=== PATIENT | male | born 1985 | race Asian ===

== ENCOUNTER 2025-01-22 17:58 | Emergency (ER) | payer OTHER, SELFPAY ==
[2025-01-22 19:18] VITALS: BP 131/83; PULSE 95; RESP 19; TEMP 37.2; O2SAT 96
--- NOTE | 2025-01-22 19:28 | PD.EDADULT ---
ED General RME/HPI General Chief complaint: General Adult/Misc Complain Stated complaint: NEEDS PRESCRIPTION FOR DOXYCYCLINE Time Seen by Provider: 01/22/25 17:59 Arrival date/time: 01/22/25 17:58 39 year old male present to emergency room with medication refill for doxycycline. pt report recent test positive for [facility]lam[facility]. pt was divide up the antibiotic when he accidentally drop his prescription into the garage dispenser. SEVERITY: Symptoms are described as being severe with limitations on activities of daily living CONTEXT: The patient is unable to identify any inciting events. DURATION/TIMING: The symptoms started approximately 1 day ASSOCIATED SYMPTOMS: The patient is unable to identify any other associated symptoms. MODIFYING FACTORS: The patient is unable to identify any alleviating or aggravating symptoms. PERTINENT ROS: no fevers, no chest pain/shortness of breath no nausea,vomiting, diarrhea, no dizziness/headache no rash no loc/syncope episode no abd/back pain REVIEW OF SYSTEMS: See History of Present Illness - with the exception of those mentioned in the history of present illness, all other systems reviewed and reported as negative GENERAL: In general the patient is awake, interactive, in an emergency department gurney. HEAD/EYES/EARS/NOSE/THROAT: normo-cephalic, atraumatic, mucus membranes are moist, anicteric, palpebral conjunctiva is pink, trachea is midline. ABDOMEN: soft, not tender, no masses appreciated BACK: normal range of motion without pain. NEUROLOGICAL: cranio-facial features are symmetric, moves all four extremities equally without obvious limitations or weakness. EXTREMITY: no tenderness to palpation over the long bones or large joints of the bilateral upper and lower extremities, no joint swelling, no joint erythema, no signs of trauma, no unilateral leg swelling and no peripheral edema. SKIN: warm, dry, well-perfused, no jaundice, no rash, no telangiectasias or petechia. PSYCH: calm, cooperative, no evidence of psychosis or agitation Related Data Previous Rx's ?Medication ?Instructions ?Recorded doxycycline hyclate 100 mg capsule 100 mg PO BID sti 7 days #14 caps 01/22/25 Allergies Allergy/AdvReac Type Severity Reaction Status Date / Time No Known Allergies Allergy Verified 01/22/25 18:00 Course Course Course Narrative: review prescription written by health department. rx: doxycline 100mg bid for 7 days first dose given prior to discharge Quality Measures none Orders Category Date Time Status Doxycycline [Vibramycin] Med 01/22/25 19:26 Discontinued 100 mg PO X1 ONE Vital Signs Vital signs: Vital Signs Temperature 98.9 F 01/22/25 19:18 Pulse Rate 95 01/22/25 19:18 Respiratory Rate 19 01/22/25 19:18 Blood Pressure 131/83 H 01/22/25 19:18 Pulse Oximetry (%) 96 01/22/25 19:18 Oxygen Delivery Method Room Air 01/22/25 19:18 MDM Patient data External records reviewed:: None Clinical information provided by:: patient Social determinants that could affect healthcare access:: none Patient has the following chronic illnesses:: n/a How is presenting disease/condition affected by chronic disease/condition?: no chronic disease Evaluation data The following diagnostics were reviewed and interpreted by me:: other (specify) (n/a ) Lab and/or radiology exams considered but not ordered:: n/a Interpretation Summary: n/a Medications Medications considered but not ordered:: n/a Medication administrations:: Medication Administration History Discontinued Medications Doxycycline Hyclate (Doxycycline 100 Mg Tablet) 100 mg PO X1 ONE Stop: 01/22/25 19:27 as stated above Consultations Consultation(s) initiated? (list below): No Diagnosis Differential Diagnosis ED Complaint MDM: medication refill Most likely diagnosis given after review of the tests above:: medication refill, sti Admission Indicated Admission indicated?: not indicated Explain why admission is indicated or not indicated:: n/a Admission Request Was there a request for admission?: No Disposition Plan Disposition Plan: Discharge Discharge Attestation Discharge Attestation: The patient and all family members were given an opportunity to ask questions and understood the discharge instructions. Discharge instructions specifically effects, indications for sooner follow up or return to the emergency department, and the expected course of current diagnosis. Patient condition: Stable Medical Decision Making Differential Diagnosis Differential Diagnosis: medication refill Discharge Plan Plan Patient Disposition: HOME (Self Care) Prescriptions/Referrals Prescriptions/Med Rec: New doxycycline hyclate 100 mg capsule 100 mg PO BID 7 Days Qty: 14 0RF Referrals: No Primary/Family,Physician [Primary Care Provider] - In 1 week Problem List Clinical Impression: STI (sexually transmitted infection) Patient/Caregiver Discharge Instructions Education Materials: Understanding STIs Print Language: Turkish Stand Alone Forms: Marva Award Info., Patient Portal Info Letter
[2025-01-22] MEDS: DOXYCYCLINE 100 MG TABLET PO (19:55)
== END 2025-01-22 19:58 | disposition home or self-care (01) ==
PROVIDERS: Emergency Provider Emergency Medicine
DX: Z76.0 Encounter for issue of repeat prescription (principal); A74.9 Chlamydial infection, unspecified
CPT/HCPCS: 99282; A9270

== ENCOUNTER 2025-05-08 08:54 | Emergency (ER) | payer OTHER, SELFPAY ==
[2025-05-08 08:54] VITALS: BMI 28.4
[2025-05-08 09:22] VITALS: BP 122/86; PULSE 84; RESP 16; TEMP 37.1; O2SAT 96
--- NOTE | 2025-05-08 09:27 | PD.EDMALE ---
ED Male Genitalurinary RME/HPI General Chief complaint: Urogenital-Male Stated complaint: NEED SOME ANTIBIOTICS FOR STI Time Seen by Provider: 05/08/25 09:13 Arrival date/time: 05/08/25 08:54 Related Data Allergies Allergy/AdvReac Type Severity Reaction Status Date / Time No Known Allergies Allergy Verified 05/08/25 08:57 Course Orders Category Date Time Status Chlamydia/GC/TV - PCR Stat Lab 05/08/25 Ordered HIV Rapid (Source Pt) Stat Lab 05/08/25 09:21 Ordered Syphilis Stat Lab 05/08/25 Ordered UA, C/S IF [Urinalysis, C/S if Indicated] Stat Lab 05/08/25 09:20 Ordered Vital Signs Vital signs: Vital Signs Temperature 98.8 F 05/08/25 09:22 Pulse Rate 84 05/08/25 09:22 Respiratory Rate 16 05/08/25 09:22 Blood Pressure 122/86 H 05/08/25 09:22 Pulse Oximetry (%) 96 05/08/25 09:22 Oxygen Delivery Method Room Air 05/08/25 09:22 Urogenital - Male MDM Narrative MDM Narrative:: Patient is a 40-year-old male seen emerged part concerns for burning with urination, and penile discharge. Patient has a history of polysubstance use, recurrent STIs. Concern for recurrence of STI, urinary tract infection. Patient abdomen soft nondistended, denies any flank pain. Less likely pyelonephritis, acute intra-abdominal pathology. Patient nonseptic nontoxic-appearing at this time. Ordered STI testing as well as urinalysis. Offered medication for symptom relief. Discharge Plan Patient/Caregiver Discharge Instructions Print Language: [place] Island[place]
--- NOTE | 2025-05-08 09:39 | PD.EDMALE ---
ED Male Genitalurinary RME/HPI General Chief complaint: Urogenital-Male Stated complaint: NEED SOME ANTIBIOTICS FOR STI Time Seen by Provider: 05/08/25 09:13 Arrival date/time: 05/08/25 08:54 Limitations: no limitations RME / HPI RME / HPI Narrative: DR. YUE MURPHY ED EVALUATION: 40-year-old male with past medical history of polysubstance use and recurrent sexually transmitted infections presents to the Emergency Department with complaint of white penile discharge that began today, following three days of penile discomfort. Patient reports being sexually active with both male and female partners. He denies fever, chills, nausea, vomiting, rash, or other associated symptoms. No known drug allergies reported. Related Data Previous Rx's ?Medication ?Instructions ?Recorded doxycycline monohydrate 100 mg 100 mg PO BID #14 caps 05/08/25 capsule Allergies Allergy/AdvReac Type Severity Reaction Status Date / Time No Known Allergies Allergy Verified 05/08/25 08:57 Review of Systems Review of Systems Systems Reviewed: All systems reviewed, normal except as documented Past Medical History Social History SMOKING STATUS: Never smoker SUBSTANCE USE: unknown (history of polysubstance use) ED Exam General Limitations: Present no limitations General appearance: Present alert and in no apparent distress Head Head exam: Present atraumatic, normocephalic and normal inspection Eye Eye exam: Present normal appearance, PERRL and EOMI ENT ENT exam: Present normal exam, normal oropharynx and mucous membranes moist Neck Neck exam: Present normal inspection, full ROM and trachea midline Chest Chest inspection: Present normal inspection and symmetric chest wall rise Respiratory Respiratory exam: Present normal lung sounds bilaterally Cardiovascular Cardiovascular exam: Present regular rate, normal rhythm and normal heart sounds Abdominal Exam Abdominal exam: Present soft and normal bowel sounds Extremities Exam Extremities exam: Present normal inspection and full ROM Back Exam Back exam: Present normal inspection and full ROM Neurological Exam Neurological exam: Present alert, oriented X3 and CN II-XII intact Psychiatric Psychiatric exam: Present normal affect and normal mood Skin Skin exam: Present warm, dry, intact and normal color; Absent rash Course Quality Measures none Orders Category Date Time Status Chlamydia/GC/TV - PCR Stat Lab 05/08/25 09:39 Completed MHATP/TP-PA* Stat Lab 05/08/25 09:55 Received Syphilis Stat Lab 05/08/25 09:55 Completed UA, C/S IF [Urinalysis, C/S if Indicated] Stat Lab 05/08/25 09:39 Completed Urine Culture Stat Lab 05/08/25 09:39 Received Doxycycline [Vibramycin] Med 05/08/25 10:19 Discontinued 100 mg PO X1 ONE cefTRIAXone [Rocephin] 500 mg Med 05/08/25 10:21 Discontinued Lidocaine 1% 20 ml [Xylocaine 1% 20 ML] 1 ml IM X1 Vital Signs Vital signs: Vital Signs Temperature 98.8 F 05/08/25 09:22 Pulse Rate 84 05/08/25 09:22 Respiratory Rate 16 05/08/25 09:22 Blood Pressure 122/86 H 05/08/25 09:22 Pulse Oximetry (%) 96 05/08/25 09:22 Oxygen Delivery Method Room Air 05/08/25 09:22 Urogenital - Male MDM Narrative MDM Narrative:: IKaylin am scribing for and in the presence of Dr. Cote. Patient is a 40-year-old male seen emerged part concerns for burning with urination, and penile discharge. Patient has a history of polysubstance use, recurrent STIs. Concern for recurrence of STI, urinary tract infection. Patient abdomen soft nondistended, denies any flank pain. Less likely pyelonephritis, acute intra-abdominal pathology. Patient nonseptic nontoxic-appearing at this time. Ordered STI testing as well as urinalysis. Offered medication for symptom relief. Patient data External records reviewed:: [facility] [place] previous records Clinical information provided by:: patient Social determinants that could affect healthcare access:: substance use Patient has the following chronic illnesses:: Polysubstance use and recurrent sexually transmitted infections. No known drug allergies reported. How is presenting disease/condition affected by chronic disease/condition?: exacerbated by Evaluation data The following diagnostics were reviewed and interpreted by me:: lab results Lab and/or radiology exams considered but not ordered:: none Interpretation Summary: See narrative above. Medications / Prescriptions Medications or Prescriptions considered but not ordered:: none Medication administrations:: Medication Administration History Discontinued Medications Ceftriaxone Sodium 500 mg/ (Lidocaine HCl 1 ml) 0 mg IM X1 ONE Stop: 05/08/25 10:22 Last Admin: 05/08/25 10:28 Dose: 500 mg Documented By: Doxycycline Hyclate (Doxycycline 100 Mg Tablet) 100 mg PO X1 ONE Stop: 05/08/25 10:20 Last Admin: 05/08/25 10:28 Dose: 100 mg Documented By: see above if any Consultations Consultation(s) initiated? (list below): No Diagnosis Urogenital Male Differential Diagnosis: other (gonorrhea, chlamydia urethritis, and non-gonococcal/non-chlamydial urethritis) Most likely diagnosis given after review of the tests above:: STD Admission Indicated Admission indicated?: not indicated Admission Request Was there a request for admission?: No Disposition Plan Disposition Plan: Discharge Discharge Attestation Discharge Attestation: The patient and all family members were given an opportunity to ask questions and understood the discharge instructions. Discharge instructions specifically effects, indications for sooner follow up or return to the emergency department, and the expected course of current diagnosis. Patient condition: Stable Discharge Plan Plan Patient Disposition: HOME (Self Care) Prescriptions/Referrals Prescriptions/Med Rec: New doxycycline monohydrate 100 mg capsule 100 mg PO BID Qty: 14 0RF Problem List Clinical Impression: Sexually transmissible disease Patient/Caregiver Discharge Instructions Education Materials: Understanding STIs Additional Instructions: I highly recommend that you use condoms for sexually transmitted infection prevention. Print Language: Greenlandic Stand Alone Forms: Marva Award Info., Patient Portal Info Letter
[2025-05-08 10:03] LABS: Collection Type, Urine Clean Catch; Squamous Epithelial Cell,Urine 0 /hpf (0-5)
[2025-05-08 10:07] LABS: Bilirubin,Urine Negative (Negative); Blood,Urine Negative (Negative); Clarity,Urine Clear (Clear/Hazy); Color,Urine Yellow (Lt Yel-Yel); Glucose, Urine Negative (Negative); Ketones,Urine Negative (Negative); Leukocyte Esterase,Urine Positive (Negative); Nitrite,Urine Negative (Negative); PH,Urine 6.0 (5.0-7.0); Protein,Urine Negative (Neg - Trace); RBC,Urine 2 /hpf (0-3); Specific Gravity,Urine 1.026 (1.001-1.035); Urobilinogen,Urine Negative mg/dL (0.0-1.0); WBC,Urine 12 /hpf (0-5)
[2025-05-08 10:12] LABS: Culture Indicated,Urine Yes
[2025-05-08] MEDS: DOXYCYCLINE 100 MG TABLET PO (10:28)
[2025-05-08] MEDS: cefTRIAXone 500 MG, LIDOCAINE 1% 20 ML 1 ML IM (10:28)
[2025-05-08 10:54] LABS: HIV Rapid (Source Pt) Non-Reactive; MHATP/TP-PA* See Sep Rpt; Syphilis Reactive (Nonreactive)
[2025-05-08 12:22] LABS: Chlamydia trachomatis PCR Negative (Not Detect); Neisseria Gonorrhoeae DNA PCR Negative (Not Detect); Trichomonas Negative (Negative)
== END 2025-05-08 11:44 | disposition home or self-care (01) ==
LOC: SERX 10:50
PROVIDERS: Emergency Provider Emergency Medicine
DX: A64 Unspecified sexually transmitted disease (principal)
CPT/HCPCS: 36415; 81001; 86780; 87086; 87491; 87591; 87661; 96372; 99283; J0696; J3490; A9270

== ENCOUNTER 2025-09-09 03:50 | Emergency (ER) | payer OTHER, SELFPAY ==
[2025-09-09 03:52] VITALS: BMI 29.7
[2025-09-09 04:47] VITALS: BP 138/94; PULSE 91; RESP 19; TEMP 36.6; O2SAT 96
--- NOTE | 2025-09-09 05:19 | EDRME_ITS ---
Rapid Medical Screening Exam [facility] Arrival date/time: 09/09/25 03:50 40M with history of sleep apnea presents to ED with several days of sore throat and 1 day of SOB and tingling/numbness that woke him up from sleep. Patient denies known psych disorder and denies drug/alcohol use. Chief Complaint: Shortness of Breath/Dyspnea Vital signs: Vital Signs Temperature 98 F 09/09/25 04:47 Pulse Rate 91 09/09/25 04:47 Respiratory Rate 19 09/09/25 04:47 Blood Pressure 138/94 H 09/09/25 04:47 Pulse Oximetry (%) 96 09/09/25 04:47 Oxygen Delivery Method Room Air 09/09/25 04:47 Exam: Clear lungs. Anxious Clinical Impression: Anxiety/panic attack vs CAP vs URI vs PE
--- NOTE | 2025-09-09 05:20 | XR_ITS ---
EXAMINATION: PA chest single view TECHNIQUE: Upright PA chest single view Date and time: September 01, 2025, 0613 hours INDICATIONS: Coughing shortness of breath 3 days FINDINGS: Normal heart size Mild exaggeration of bronchovascular markings. No lobar pneumonia or pulmonary edema IMPRESSION: Mild bronchitis pattern
[2025-09-09] MEDS: DIAZEPAM 5 MG TABLET PO (05:43)
--- NOTE | 2025-09-09 07:47 | EDNOTE_ITS ---
ED SOB =RME/HPI General Chief Complaint: Shortness of Breath/Dyspnea Stated Complaint: SOB Time Seen by Provider: 09/09/25 06:11 Source: patient Arrival date/time: 09/09/25 03:50 40-year-old male with no known medical history presents to the emergency room with a chief complaint of shortness of breath x 1 day Mode of arrival: ambulatory Limitations: no limitations RME / HPI RME / HPI Narrative: 09/09/25 03:50 40M with history of sleep apnea presents to ED with several days of sore throat and 1 day of SOB and tingling/numbness that woke him up from sleep. Patient denies known psych disorder and denies drug/alcohol use. Exam: Clear lungs. Anxious Impression: Anxiety/panic attack vs CAP vs URI vs PE Related Data Previous Rx's ?Medication ?Instructions ?Recorded doxycycline monohydrate 100 mg 100 mg PO BID #14 caps 05/08/25 capsule albuterol sulfate 90 mcg/actuation 2 puff inhalation Q 6H PRN 09/09/25 aerosol inhaler (Ventolin HFA) shortness of breath or wheezing #6.7 grams Allergies Allergy/AdvReac Type Severity Reaction Status Date / Time No Known Allergies Allergy Verified 09/09/25 03:55 Review of Systems Review of Systems Systems Reviewed: All systems reviewed, normal except as documented Constitutional Constitutional: Reports system reviewed and no additional complaints, except as documented, Denies fatigue, Denies fever(s), Denies headache(s) and Denies weakness Eyes Eyes: Reports system reviewed and no additional complaints, except as documented, Denies blurry vision and Denies change in vision ENT Ears, Nose, Mouth, and Throat: Reports system reviewed and no additional complaints, except as documented, Denies otalgia, Denies headache(s), Denies nasal congestion, Denies throat swelling and Denies vertigo Cardiovascular Cardiovascular: Reports system reviewed and no additional complaints, except as documented, Denies chest pain, Reports dyspnea and Denies dyspnea on exertion Respiratory Respiratory: Reports system reviewed and no additional complaints, except as documented, Denies chest congestion, Reports cough, Reports dyspnea, Denies dyspnea on exertion and Denies wheezing Gastrointestinal Gastrointestinal: Reports system reviewed and no additional complaints, except as documented, Denies abdominal pain, Denies cramping, Denies nausea and Denies vomiting Genitourinary Genitourinary: Reports system reviewed and no additional complaints, except as documented, Denies dysuria and Denies hematuria Musculoskeletal Musculoskeletal: Reports system reviewed and no additional complaints, except as documented and Denies back pain Integumentary/Breasts Skin/Breast: Reports system reviewed and no additional complaints, except as documented and Denies wounds Neurologic Neurologic: Reports system reviewed and no additional complaints, except as documented, Denies confusion, Denies headache(s), Denies lack of coordination, Denies vertigo and Denies weakness Psychiatric Psychiatric: Reports system reviewed and no additional complaints, except as documented, Denies anxiety, Denies confusion, Denies depression, Denies paranoia, Denies suicidal ideation and Denies tactile hallucinations Endocrine Endocrine: Reports system reviewed and no additional complaints, except as documented and Denies fatigue Hematologic/Lymphatic Hematologic/Lymphatic: Reports system reviewed and no additional complaints, except as documented and Denies lymphadenopathy Allergic/Immunologic Allergic/Immunologic: Reports system reviewed and no additional complaints, except as documented, Denies throat swelling, Denies urticaria and Denies wheezing Past Medical History Social History SMOKING STATUS: Never smoker SUBSTANCE USE: unknown (history of polysubstance use) ED Exam General Limitations: Present no limitations General appearance: Present alert and in no apparent distress Head Head exam: Present atraumatic Eye Eye exam: Present normal appearance, PERRL and EOMI ENT ENT exam: Present normal exam, normal oropharynx and mucous membranes moist Neck Neck exam: Present normal inspection, full ROM and trachea midline Chest Chest inspection: Present normal inspection and symmetric chest wall rise Respiratory Respiratory exam: Present normal lung sounds bilaterally Cardiovascular Cardiovascular exam: Present regular rate, normal rhythm and normal heart sounds Abdominal Exam Abdominal exam: Present soft and normal bowel sounds Extremities Exam Extremities exam: Present normal inspection and full ROM Back Exam Back exam: Present normal inspection and full ROM Neurological Exam Neurological exam: Present alert, oriented X3 and CN II-XII intact Psychiatric Psychiatric exam: Present normal affect and normal mood Skin Skin exam: Present warm, dry, intact and normal color Course Quality Measures none Orders Category Date Time Status XR chest 1V portable Stat Exams 09/09/25 05:20 Completed Diazepam [Valium] Med 09/09/25 05:20 Discontinued 5 mg PO X1 ONE Vital Signs Vital signs: Vital Signs Temperature 98 F 09/09/25 04:47 Pulse Rate 91 09/09/25 04:47 Respiratory Rate 19 09/09/25 04:47 Blood Pressure 138/94 H 09/09/25 04:47 Pulse Oximetry (%) 96 09/09/25 04:47 Oxygen Delivery Method Room Air 09/09/25 04:47 O2 saturation 96% within normal limits Shortness of Breath / Dyspnea MDM Narrative MDM Narrative:: 40-year-old male with no known medical history presents to the emergency room with a chief complaint of shortness of breath x 1 day Patient is hemodynamically stable and in no apparent distress Physical examination shows clear bilateral lung sounds there is no wheezing or any abnormal breath sounds Chest x-ray was negative for any pneumonic infiltrates. And shows bronchitis An inhaler was sent to the patient's pharmacy Patient was discharged and educated to follow-up with primary care provider in the next 24 to 48 hours and return to the emergency room for any evidence of worsening signs or symptoms Patient data External records reviewed:: [facility] previous records Clinical information provided by:: patient Social determinants that could affect healthcare access:: none Patient has the following chronic illnesses:: No chronic illness How is presenting disease/condition affected by chronic disease/condition?: no chronic disease Evaluation data The following diagnostics were reviewed and interpreted by me:: lab results and radiology exam(s) Lab and/or radiology exams considered but not ordered:: Labs and radiology exams considered and ordered Interpretation Summary: Chest x-ray-no pneumonic infiltrates Medications / Prescriptions Medications or Prescriptions considered but not ordered:: Medication given Medication administrations:: Medication Administration History Discontinued Medications Diazepam (Diazepam 5 Mg Tablet) 5 mg PO X1 ONE Stop: 09/09/25 05:21 Last Admin: 09/09/25 05:43 Dose: 5 mg Documented By: Medication given Consultations Consultation(s) initiated? (list below): No Diagnosis Shortness of Breath Differential Diagnosis: community acquired pneumonia, asthma with exacerbation and other Most likely diagnosis given after review of the tests above:: Bronchitis Admission Indicated Admission indicated?: not indicated Admission Request Was there a request for admission?: No Disposition Plan Disposition Plan: Discharge Discharge Attestation Discharge Attestation: The patient and all family members were given an opportunity to ask questions and understood the discharge instructions. Discharge instructions specifically effects, indications for sooner follow up or return to the emergency department, and the expected course of current diagnosis. Patient condition: Stable Discharge Plan Plan Patient Disposition: HOME (Self Care) Discharge Disposition comment: Stable Prescriptions/Referrals Prescriptions/Med Rec: New albuterol sulfate [Ventolin HFA] 90 mcg/actuation HFA aerosol inhaler 2 puff inhalation Q6H PRN (Reason: shortness of breath or wheezing) Qty: 6.7 0RF No Action doxycycline monohydrate 100 mg capsule 100 mg PO BID Qty: 14 0RF Referrals: No Primary/Family,Physician [Primary Care Provider] - In 1 week Problem List Clinical Impression: Bronchitis Patient/Caregiver Discharge Instructions Education Materials: ED Bronchitis, No Antibiotic (Adult) Additional Instructions: Please follow-up with your primary care provider in the next 24 to 48 hours Your chest x-ray was negative for any pneumonia Medication was sent to your pharmacy please pick it up and take it as indicated For any evidence of worsening signs or symptoms return to the emergency room immediately Print Language: Austrian Stand Alone Forms: Marva Award Info., Work/School Release, Patient Portal Info Letter PA/PRAKASH Supervising Physician PA/PRAKASH Supervising Physician: Dr. Angulo
== END 2025-09-09 07:55 | disposition home or self-care (01) ==
PROVIDERS: Emergency Provider Nurse Practitioner Family
DX: J40 Bronchitis, not specified as acute or chronic (principal)
CPT/HCPCS: 71045; 99282; A9270